=== PATIENT | male | born 1965 | race Hispanic/Latino ===

== ENCOUNTER → 2019-08-09 | Day surgery (SDC) | payer BC ==
[~2019-08-09] MED LIST: ALLOPURINOL300 MG PO; AZO PO; B&O 60MG R/S 60 MG SUPP PR ONE; CEFTRIAXONE SOD 1 GM/NS 50 ML 50 ML IV ONE; DEXAMETHASONE SOD PHOS INJ 4 MG/ML VIAL ONE; FENTANYL CITRATE/PF 100MCG/2 ML INJ ONE; IOPAMIDOL 300MG/ML 50ML INFUS..BTL IV ONE; LIDOCAINE HCL 2% LOCAL INJ 5 ML SDV VIAL INJ ONE; LIPITOR20 MG PO; MIDAZOLAM HCL 2 MG/2 ML VIAL ONE; ONDANSETRON HCL INJ 2MG/ML 2ML 2 MG/ML VIAL ONE; PROPOFOL IV EMULSION 10 MG/ML 20 ML VIAL ONE; SEVOFLURANE INHAL SOLN 250 ML PEN BTL ONE; TYLENOL WITH C1 EACH PO; ULTRAM 50MG50 MG PO; URIBEL CAPSULE1 EACH PO
[2019-08-09 13:15] LABS: BASOPHILS % 0.5 % (0.0-1.0); EOSINOPHILS # (AUTO) 0.1 (0.0-0.4); EOSINOPHILS % 1.1 % (0.0-6.0); HEMATOCRIT 46.8 % (38.2-49.6); HEMOGLOBIN 15.8 g/dL (14.0-18.0); LYMPHOCYTES # (AUTO) 1.4 (1.0-3.2); LYMPHOCYTES % 16.2 % (18.0-39.1); MEAN CORPUSCULAR HGB CONC 33.8 g/dL (31-35); MONOCYTES # (AUTO) 0.6 (0.2-0.8); MONOCYTES % 6.7 % (4.4-11.3); NEUTROPHILS # (AUTO) 6.3 (2.1-6.9); NEUTROPHILS % 75.3 % (38.7-80.0); PLATELET COUNT 222 x10e3/uL (140-360); RED BLOOD COUNT 5.26 x10e6/uL (4.3-5.7)
[2019-08-09 13:30] LABS: ALBUMIN 4.3 g/dL (3.5-5.0); ALBUMIN/GLOBULIN RATIO 1.5 (0.8-2.0); ANION GAP 11.1 mmol/L (8-16); CALCIUM 9.6 mg/dL (8.4-10.2); CREATININE, SERUM 1.25 mg/dL (0.72-1.25); POTASSIUM 4.1 mmol/L (3.5-5.1)
[2019-08-09 14:49] VITALS: BP 134/90
--- NOTE | 2019-08-11 17:31 | Operative Report ---
DATE OF PROCEDURE: 08/09/2019 SURGEON: Edgar Cain MD PREOPERATIVE DIAGNOSES: 1. Left ureterolithiasis. 2. Left hydronephrosis due to stone. 3. Renal colic. 4. Bilateral nephrolithiasis. POSTOPERATIVE DIAGNOSES: 1. Left ureterolithiasis. 2. Left hydronephrosis due to stone. 3. Renal colic. 4. Bilateral nephrolithiasis. 5. Distal left ureteral narrowing or stricture. OPERATIONS PERFORMED: 1. Cystourethroscopy with bilateral ureteral catheterization and retrograde ureteropyelography (separate procedure performed to evaluate the upper tract in light of the renal colic and nephrolithiasis). 2. Interpretation of retrograde ureteropyelography. 3. Supervision of fluoroscopy, no radiologist present. 4. Left ureteroscopy with stone manipulation and extraction (separate procedure performed for the left ureterolithiasis). 5. Left ureteroscopy with dilation of distal ureteral stricture (separate procedure performed for the diagnosis of stricture). 6. Radiological services for supervision and interpretation of ureteroscopy. 7. Cystourethroscopy with insertion of left indwelling ureteral stent (separate procedure performed to relieve the hydronephrosis). ANESTHESIA: General. COMPLICATIONS: None. CLINICAL SUMMARY: Charlotte Hutchinson is a 54-year-old man with a history of prior passed stones. The patient has failed to pass this current stone and in pain. He desires definitive management. He understands the risks of bleeding, infection, injury to adjacent structures, need for additional procedures, and elected to proceed. He also understands that this is not an elective procedure due to the acute pain in the obstruction and potential ongoing damage to his kidney; therefore, during this COVID-19 emergency situation his case is deemed appropriate for proceeding. OPERATIVE PROCEDURE IN DETAIL: Informed consent was verified. Charlotte Hutchinson was properly identified, taken to the operating room, placed on the cystoscopy table in supine position. Anesthesia was uneventfully begun. The patient was then carefully gently repositioned in a dorsal lithotomy position with all pressure points were padded. His genitalia were prepared and draped in usual sterile fashion. The cystoscope sheath with the visual obturator in place was atraumatically inserted. The patient's urethra was guided unremarkable urethra through the normal sphincteric region, through the prostate bed, which was significant for early BPH. The patient's bladder revealed grade 1 trabeculations, no tumors, no stones, no diverticula, no suspicious mucosal lesions were identified. The ureteral catheter was used to cannulate each ureter and retrograde ureteral pyelograms were performed. A guidewire was then placed into the left ureter and guided to the level of the patient's kidney. The semi-rigid ureteroscope was then reintroduced alongside the guidewire and guided into the distal left ureter; and approximately 1 cm proximal to the ureteral orifice there was narrowing of the ureter. We did not want to injure the ureter. Therefore, the ureteroscope was withdrawn. A coaxial dilator was utilized to dilate the ureter to 14-Ivorian in size. We then easily able to place the ureteroscope alongside the guidewire and guided this into the patient's ureter, we identified the stone. The stone was then manipulated with a flat wire basket and atraumatically extracted and sent for chemical analysis. With cystoscopic fluoroscopic guidance, the left-sided indwelling ureteral stent was then placed, it was coiled in the patient's kidney as well as the patient's bladder. The retaining suture was cut short. Interpretation of retrograde ureteropyelography contrast was instilled in retrograde fashion bilaterally. The right hand side exhibited some filling defect in a lateral lower pole heath, which corresponded to the calcifications noted on CT. The left ureter was obstructed by a filling defect just below the iliac vessel. There was hydroureteronephrosis in the left hand side, compared to the right hand side, it is difficult to discern filling defect in the left kidney very well in the study. The stent was in good position, coiled the patient's kidneys as well as the patient's bladder at the end of the case. The patient's bladder was drained. Cystoscope was withdrawn. Belladonna and opium suppository were placed revealing a 30 g prostate, smooth, nonfluctuant without any nodules. The patient was then uneventfully reversed from anesthesia and taken to recovery room in stable condition. There were no complications to the procedure. He tolerated the procedure well. Explicit postop instructions were given. We will plan to return the patient to the operating room in several weeks to remove his stent, perform ureteroscopy and hopefully manage and resolve his left nephrolithiasis as well. Ongoing urological followup including for metabolic stone workup and stone prevention regimen. Edgar MD CONCHITA Cain/BRITTA /[id number]
== END | disposition home or self-care (01) ==
LOC: OR 12:33
PROVIDERS: ATTEND Urology
DX: N13.2 Hydronephrosis with renal and ureteral calculous obstruction (principal); N13.5 Crossing vessel and stricture of ureter without hydronephrosis; N40.0 Benign prostatic hyperplasia without lower urinary tract symptoms; N28.1 Cyst of kidney, acquired; N32.89 Other specified disorders of bladder; M10.9 Gout, unspecified; K57.90 Diverticulosis of intestine, part unspecified, without perforation or abscess without bleeding; E78.5 Hyperlipidemia, unspecified
CPT/HCPCS: 36415; 52332; 52344; 52352; 74420; 80053; 83970; 84550; 85025; 88300; 93005; C1758; C1766; C1769; C2617; J0696; J1100; J2001; J2250; J2405; J2704; J3010; Q9967

== ENCOUNTER → 2019-08-30 | Day surgery (SDC) | payer BC ==
--- NOTE | 2019-08-29 16:08 | Diagnostic Imaging Report ---
EXAM: ABDOMEN-1VIEW (KUB) DATE: 08/29/2019 12:00 AM INDICATION: Urinary stone COMPARISON: None FINDINGS/IMPRESSION: There is a left-sided double-J ureteral stent identified in place. There is a 4 mm stone identified overlying the level of the left renal pelvis. Multiple subcentimeter stones are identified overlying the right renal shadow. The largest measures 4 mm and projects over the interpolar region. Suspected phleboliths noted within the pelvis. Bowel gas pattern is nonobstructive. No acute osseous abnormality is identified. Signed by: Dr. Miguel Chavez MD on 08/29/2019 4:05 PM
[2019-08-29 16:19] LABS: ANION GAP 10.3 mmol/L (8-16); CALCIUM 9.4 mg/dL (8.4-10.2); CREATININE, SERUM 1.3 mg/dL (0.72-1.25); POTASSIUM 4.3 mmol/L (3.5-5.1)
[~2019-08-30] MED LIST changes: +EPHEDRINE SULFATE INJ 50 MG/ML VIAL ONE
[2019-08-30 10:30] VITALS: BP 140/81
--- NOTE | 2019-08-31 14:01 | Operative Report ---
DATE OF PROCEDURE: 08/30/2019 SURGEON: Edgar Cain MD PREOPERATIVE DIAGNOSES: 1. Left nephrolithiasis. 2. Left indwelling ureteral stent. POSTOPERATIVE DIAGNOSES: 1. Left nephrolithiasis. 2. Left indwelling ureteral stent. OPERATIONS PERFORMED: 1. Cystourethroscopy with complicated removal of left indwelling ureteral stent (separate procedure performed for the diagnosis of the stent under separate scope). 2. Left ureteroscopy with stone manipulation and extraction (separate performed for the nephrolithiasis). 3. Radiological services with supervision and interpretation of ureteroscopy. 4. Interpretation of retrograde ureteropyelography. 5. Supervision of fluoroscopy, no radiologist present. ANESTHESIA: General. COMPLICATIONS: None. CLINICAL SUMMARY: Charlotte Hutchinson is a 54-year-old man with bilateral nephrolithiasis. He underwent a left ureteroscopy with dilation of ureteral stricture and stone management, stent was left in place. He was brought to remove his stent. He is aware of the risks of bleeding, infection, injury to adjacent structures, need for additional procedures and elected to proceed. The patient's more elective procedure of right ESWL will be performed at a different setting. These procedures done during the COVID-19 emergency due to the fact that the patient has a stent which is causing discomfort and intermittent bleeding and intermittent pains. Also, this patient has nephrolithiasis and leaving a foreign body such as a stent inside the patient can cause additional stone formation stent encrustation which causes more complications, need for additional procedures. Therefore, this procedure is not elective and is appropriate for performing it during the COVID-19 emergency situation. OPERATIVE PROCEDURE IN DETAIL: Informed consent was verified, Charlotte Hutchinson was properly identified, taken to the operating room, placed on the cystoscopy table in supine position. Anesthesia was uneventfully begun. The patient was then carefully gently repositioned in the dorsal lithotomy position. All pressure points were well padded. His genitalia were prepared and draped in usual sterile fashion. The cystoscope sheath with the visual obturator in place, was atraumatically inserted into the patient's urethra, was guided unremarkable distal urethra through normal sphincteric region through the prostate bed, which exhibited mild BPH and into the patient's bladder. Panendoscopy revealed a stent emerging from the left ureteral orifice with mild inflammation around the left ureteral orifice and some encrustation of the stent with what appears to be blood clot and potentially staining from the patient's p.r.n. medications to relieve his stent pain. A guidewire was then placed alongside the stent and guided to the level of the patient's kidney. The stent was then grasped completely removed and discarded. Semi-rigid ureteroscope was inserted alongside the guidewire into the left ureter, it was guided up the distal left ureter. Contrast was injected. The patient's previous location of ureteral stricture narrowing was now wide open and completely healed. Flexible ureteroscope was then brought up over the guidewire and guided to the level of the patient's kidney. Panendoscopy with intrarenal collecting system revealed one stone that was encrusted by the same tear that was encrusting the stent. This stone was grasped with Nitinol tipless basket and atraumatically extracted. We reintroduced the ureteroscope into the left upper collecting system. Panendoscopy revealed additional debris, but this all was not stone debris, but rather it was proteinaceous type and chemical plant debris related to the patient's p.r.n. medications and potentially blood clots. We tried to grasp this debris with a basket and every time we did so, it crossed and disintegrated. We carefully examined the entire collecting system. Again, it revealed Matthew's plaques, but no residual stone burden. We carefully re-examined the ureter as we exited, it exhibited no stones, no suspicious lesions, no strictures. Interpretation of retrograde ureteropyelography contrast was instilled in retrograde fashion, left hand side by the ureteroscope. There was some fullness of the collecting system. There was relatively backflow noted, but there were no suspicious lesions. Unobstructed drainage was observed bilaterally fluoroscopically. The patient's bladder was drained. Cystoscope was withdrawn. Belladonna and opium suppository were placed revealing a 30 g prostate, smooth, nonfluctuant without any nodules. The patient was then uneventfully reversed from anesthesia and taken to recovery room in stable condition. There were no complications to the procedure, he tolerated the procedure well. Explicit postop instructions were given. PLANS: Plans will be to return the patient more electively to the operating room for a right-sided extracorporeal shockwave lithotripsy. We also plan to follow the patient up in the office to begin his metabolic stone workup to include a 24-hour urine test. Edgar MD KAI Cain /[id number]
== END | disposition home or self-care (01) ==
LOC: OR 07:27
PROVIDERS: ATTEND Urology
DX: N20.0 Calculus of kidney (principal); Z46.6 Encounter for fitting and adjustment of urinary device; N28.89 Other specified disorders of kidney and ureter; N20.1 Calculus of ureter; N13.30 Unspecified hydronephrosis; N40.1 Benign prostatic hyperplasia with lower urinary tract symptoms; R39.12 Poor urinary stream; N28.1 Cyst of kidney, acquired; R80.9 Proteinuria, unspecified; M10.9 Gout, unspecified; E78.5 Hyperlipidemia, unspecified
CPT/HCPCS: 36415; 52352; 74018; 74420; 80048; 88300; C1769; J0696; J1100; J2001; J2250; J2405; J2704; J3010; Q9967

== ENCOUNTER → 2019-10-25 | Day surgery (SDC) | payer BC, OTHER ==
[2019-10-22 14:24] LABS: BASOPHILS # (AUTO) 0.1 (0.0-0.1); BASOPHILS % 0.6 % (0.0-1.0); EOSINOPHILS # (AUTO) 0.1 (0.0-0.4); EOSINOPHILS % 1.4 % (0.0-6.0); HEMATOCRIT 46.2 % (38.2-49.6); HEMOGLOBIN 15.3 g/dL (14.0-18.0); LYMPHOCYTES # (AUTO) 1.1 (1.0-3.2); LYMPHOCYTES % 13.2 % (18.0-39.1); MEAN CORPUSCULAR HEMOGLOBIN 29.3 pg (28-32); MEAN CORPUSCULAR HGB CONC 33.1 g/dL (31-35); MEAN CORPUSCULAR VOLUME 88.5 fL (81-99); MONOCYTES # (AUTO) 0.6 (0.2-0.8); MONOCYTES % 7.1 % (4.4-11.3); NEUTROPHILS # (AUTO) 6.6 (2.1-6.9); NEUTROPHILS % 77.2 % (38.7-80.0); PLATELET COUNT 216 x10e3/uL (140-360); RED BLOOD COUNT 5.22 x10e6/uL (4.3-5.7); RED CELL DISTRIBUTION WIDTH 13.6 % (11.7-14.4)
[2019-10-22 14:48] LABS: ANION GAP 14.2 mmol/L (8-16); BLOOD UREA NITROGEN 24 mg/dL (7-26); BUN/CREATININE RATIO 19 (6-25); CALCIUM 9.7 mg/dL (8.4-10.2); CARBON DIOXIDE 25 mmol/L (22-29); CHLORIDE 106 mmol/L (98-107); CREATININE, SERUM 1.24 mg/dL (0.72-1.25); EST GLOMERULAR FILTRATION RATE > 60 ML/MIN (60-); GLUCOSE 88 mg/dL (74-118); POTASSIUM 4.2 mmol/L (3.5-5.1); SODIUM 141 mmol/L (136-145)
--- NOTE | 2019-10-22 15:15 | Diagnostic Imaging Report ---
Abdomen, 1 view. History: Preop, urologic procedure. Findings: Air is scattered throughout nondilated small and large bowel. A 3 mm calcific density is projected over the lower pole of the right kidney. Calcified phleboliths are noted within the pelvis bilaterally. The osseous structures are intact. IMPRESSION: Non-specific bowel gas pattern. Possible small right renal calculus. Signed by: Maneul Mejía on 10/22/2019 3:11 PM
[~2019-10-25] MED LIST changes: -B&O 60MG R/S 60 MG SUPP PR ONE; -DEXAMETHASONE SOD PHOS INJ 4 MG/ML VIAL ONE; -EPHEDRINE SULFATE INJ 50 MG/ML VIAL ONE; -IOPAMIDOL 300MG/ML 50ML INFUS..BTL IV ONE; -MIDAZOLAM HCL 2 MG/2 ML VIAL ONE; -ONDANSETRON HCL INJ 2MG/ML 2ML 2 MG/ML VIAL ONE
[2019-10-25 14:05] VITALS: BP 136/92
--- NOTE | 2019-12-16 02:55 | Operative Report ---
DATE OF PROCEDURE: 10/25/2019 SURGEON: Edgar Cain MD PREOPERATIVE DIAGNOSIS: Right nephrolithiasis. POSTOPERATIVE DIAGNOSIS: Right nephrolithiasis. OPERATIONS PERFORMED: 1. Staged right-sided extracorporeal shockwave lithotripsy. 2. Supervision of fluoroscopy, no radiologist present. ANESTHESIA: General. COMPLICATIONS: None. CLINICAL SUMMARY: Charlotte Franco is a 54-year-old man with right nephrolithiasis. He is brought for the above procedures. He is aware of the risks of bleeding, infection, injury to adjacent structures, need for additional procedures and elected to proceed. OPERATIVE PROCEDURE IN DETAIL: Informed consent was verified. Charlotte Franco was properly identified, taken to the operating room, placed on the lithotripsy table in supine position. Anesthesia was uneventfully begun. The patient's right lower pole nephrolithiasis was localized with biplanar fluoroscopy. A total of 3000 shocks were delivered with excellent fragmentation. The patient was then uneventfully reversed from anesthesia and taken to recovery room in stable condition. There were no complications to the procedure. He tolerated the procedure well. Explicit postop instructions were given. We will follow the patient up in the office as well as on an indefinite basis. Edgar Cain MD [place]/MODL /[id number]
== END | disposition home or self-care (01) ==
LOC: OR 10:30
PROVIDERS: ATTEND Urology
DX: N20.0 Calculus of kidney (principal); N13.5 Crossing vessel and stricture of ureter without hydronephrosis; N40.1 Benign prostatic hyperplasia with lower urinary tract symptoms; R39.12 Poor urinary stream; N28.1 Cyst of kidney, acquired; R80.9 Proteinuria, unspecified; E78.5 Hyperlipidemia, unspecified; M10.9 Gout, unspecified; Z01.810 Encounter for preprocedural cardiovascular examination; Z01.812 Encounter for preprocedural laboratory examination; Z01.818 Encounter for other preprocedural examination; Z11.59 Encounter for screening for other viral diseases
CPT/HCPCS: 36415; 50590; 74018; 80048; 83970; 84550; 85025; 87635; 93005; J0696; J2001; J2704; J3010; U0002

== ENCOUNTER → 2020-11-05 | Outpatient (CLI) | payer BC ==
[~2020-11-05] MED LIST changes: -CEFTRIAXONE SOD 1 GM/NS 50 ML 50 ML IV ONE; -FENTANYL CITRATE/PF 100MCG/2 ML INJ ONE; -LIDOCAINE HCL 2% LOCAL INJ 5 ML SDV VIAL INJ ONE; -PROPOFOL IV EMULSION 10 MG/ML 20 ML VIAL ONE; -SEVOFLURANE INHAL SOLN 250 ML PEN BTL ONE
== END ==
LOC: RAD 15:31
PROVIDERS: ATTEND Urology
DX: N20.0 Calculus of kidney (principal)
CPT/HCPCS: 74018